=== PATIENT | male | born 1950 | race Caucasian/White ===

== ENCOUNTER 2016-08-12 16:21 | Emergency (ER) | payer MEDICARE, OTHER ==
--- NOTE | 2016-08-12 18:37 | RAD ---
Exam: Three-view right knee COMPARISON: None INDICATION: Right knee pain for 3 weeks with bending, worsening over the last 10 days. No known injury. FINDINGS: AP, lateral and sunrise views of the right knee were obtained. There is no significant joint effusion. There is minor genu varus, secondary to mild to moderate medial compartment joint space narrowing. Joint spaces otherwise maintained. There is minimal tricompartment osteophyte formation. IMPRESSION: Mild osteoarthritis within the right knee, medial compartment predominant.
== END 2016-08-12 19:36 | disposition home or self-care (01) ==
LOC: ED 16:21
DX: M17.11 Unilateral primary osteoarthritis, right knee (principal); I10 Essential (primary) hypertension; E11.9 Type 2 diabetes mellitus without complications; F17.210 Nicotine dependence, cigarettes, uncomplicated; Z79.84 Long term (current) use of oral hypoglycemic drugs